=== PATIENT | male | born 1990 | race Caucasian/White ===

== ENCOUNTER 2017-01-08 09:04 | Emergency (ER) | payer OTHER ==
[2017-01-08 09:15] VITALS: BP 126/74
[2017-01-08] MEDS ORDERED: LIDOCAINE PATCH 5% TOP STA (10:47)
[2017-01-08] MEDS ORDERED: LIDOCAINE PATCH 5% TOP ONE (10:49)
--- NOTE | 2017-01-08 10:49 | ED Physician Documentation ---
History of Present Illness - Stated complaint Stated Complaint: MALE - Chief complaint Chief Complaint: General - Additonal information Additional information: hx from pt 26 AD male playing football yesterday and strained groin could not be seen at [facility] and alvaro note for PRT tomorrow no numbness weakness no back pain or abd pain Review of Systems GI: denies: Abdominal Pain : denies: Dysuria, Testicular pain Musculoskeletal: reports: Extremity pain. denies: Back pain Neurologic: denies: Focal weakness, Numbness PD PAST MEDICAL HISTORY - Past Medical History Past Medical History: No - Past Surgical History Past Surgical History: Yes HEENT: Tonsil/Adenoidectomy - Present Medications Home Medications: Ambulatory Orders Medication Instructions Recorded Confirmed Cyclobenzaprine [Flexeril] 10 mg PO TID PRN #20 tablet 01/08/17 Lidocaine Patch 5% [Lidoderm Patch] 1 each TOP DAILY PRN #10 patch 01/08/17 - Allergies Allergies/Adverse Reactions: Allergies Allergy/AdvReac Type Severity Reaction Status Date / Time penicillinase Allergy Unknown Verified 01/08/17 09:12 - Social History Does the pt smoke?: No Smoking Status: Never smoker Does the pt drink ETOH?: Yes Does the pt have substance abuse?: No - Immunizations Immunizations are current?: Yes PD ED PE NORMAL - Vitals Vital signs reviewed: Yes - Cardiac Cardiac: RRR - Respiratory Respiratory: No respiratory distress, Clear bilaterally - Abdomen Abdomen: Soft, Non tender - Extremities Extremities: Other (TTP dejon inner thighs with mm spasm on R and painful but not limited ROm) - Neuro Neuro: Alert and oriented X 3, No motor deficit, No sensory deficit Results - Vitals Vitals: Vital Signs - 24 hr 01/08/17 09:10 Temperature 36.4 C L Heart Rate 81 Respiratory 16 Rate Blood Pressure 126/74 O2 Saturation 99 Departure - Departure Disposition: 01 Home, Self Care Clinical Impression: Muscle strain, Muscle spasm Condition: Good Instructions: ED Strain Groin Follow-Up: [facility] [Provider Group] Prescriptions: Cyclobenzaprine [Flexeril] 10 mg PO TID PRN #20 tablet PRN Reason: Spasms Lidocaine Patch 5% [Lidoderm Patch] 1 each TOP DAILY PRN #10 patch PRN Reason: Pain Comments: Try the flexeril and lidocaine patches in addition to your aleve. Flexeril may cause drowsiness I wrote a note for the PRT Forms: Activity restrictions
== END 2017-01-08 13:55 | disposition home or self-care (01) ==
LOC: ED 09:04
DX: S39.011A Strain of muscle, fascia and tendon of abdomen, initial encounter (principal); X58.XXXA Exposure to other specified factors, initial encounter; Y93.61 Activity, american tackle football
CPT/HCPCS: 99283; A9270

== ENCOUNTER 2017-02-05 13:47 | Emergency (ER) | payer OTHER ==
--- NOTE | 2017-02-05 13:46 | ED Physician Documentation ---
PD HPI LOWER EXT INJURY - Stated complaint Stated Complaint: ANKLE PX - History obtained from History obtained from: Patient - History of Present Illness PD HPI LOW EXT INJURY LOCATION: Right, Ankle Type of injury: Twist Timing - onset: Today Timing - duration: Hours Timing - details: Abrupt onset, Still present Improved by: Rest Worsened by: Moving, Palpating Associated symptoms: Swelling. No: Weakness, Numbness Similar symptoms before: Has not had sx before Recently seen: Not recently seen Review of Systems Skin: denies: Abrasion (s), Laceration (s) Neurologic: denies: Focal weakness, Numbness PD PAST MEDICAL HISTORY - Past Medical History Musculoskeletal: None - Present Medications Home Medications: Ambulatory Orders Medication Instructions Recorded Confirmed Ibuprofen [Motrin] 600 mg PO TID #20 tab 02/05/17 - Allergies Allergies/Adverse Reactions: Allergies Allergy/AdvReac Type Severity Reaction Status Date / Time penicillinase Allergy Unknown Verified 01/08/17 09:12 PD ED PE NORMAL - Vitals Vital signs reviewed: Yes - General General: Alert and oriented X 3, No acute distress, Well developed/nourished - Back Back: No spinal TTP - Derm Derm: Normal color, Warm and dry, No rash - Extremities Extremities: No calf tenderness / cord, Other (right ankle with tenderness laterally and swelling. No deformity. Achilles and foot are okay. Medially not tendern. ) Results - Vitals Vitals: Vital Signs - 24 hr 02/05/17 02/05/17 13:50 15:02 Temperature 36.5 C 36.4 C L Heart Rate 109 H 92 Respiratory 18 18 Rate Blood Pressure 146/85 H 131/85 H O2 Saturation 99 100 Oxygen O2 Source Room air - Rads (name of study) ankle Radiology: Prelim report reviewed, EMP read contemporaneously (no fracture) PD MEDICAL DECISION MAKING - ED course Complexity details: reviewed results, considered differential, d/w patient Departure - Departure Disposition: 01 Home, Self Care Clinical Impression: Ankle sprain Qualifiers: Encounter type: initial encounter Involved ligament of ankle: other ligament Laterality: right Qualified Code(s): S93.491A - Sprain of other ligament of right ankle, initial encounter Condition: Stable Record reviewed to determine appropriate education?: Yes Instructions: ED Sprain Ankle W X Ray Follow-Up: [facility] [Provider Group] Prescriptions: Ibuprofen [Motrin] 600 mg PO TID #20 tab Comments: No signs of fractures on x-ray. However likely they have some torn ligaments. Use the Aircast when up and around for 3-4 weeks. Initially crutches for nonweightbearing until the pain is improved enough. Progress weightbearing as able. Ice and elevate the ankle often today and tomorrow. Limited activity based on comfort. Ibuprofen 3 times a day and add Tylenol if needed. Follow- up with your primary care in 3-5 days. Forms: Activity restrictions Discharge Date/Time: 02/05/17 15:31
[2017-02-05] MEDS ORDERED: traMADol 50 MG TABLET PO STA (13:57)
[2017-02-05] MEDS ORDERED: IBUPROFEN 600 MG TABLET PO STA (13:57)
[2017-02-05] MEDS ORDERED: traMADol 50 MG TABLET PO ONE (14:05)
[2017-02-05] MEDS ORDERED: IBUPROFEN 600 MG TABLET PO ONE (14:05)
--- NOTE | 2017-02-05 14:43 | XRAY Preliminary Report ---
Exam: XR ANKLE 3 VIEW RT IMPRESSION: Minor lateral soft tissue swelling right ankle without underlying bony pathology. [facility] SITE ID: [id number]
--- NOTE | 2017-02-05 14:45 | XRAY Report ---
EXAM: RIGHT ANKLE RADIOGRAPHY EXAM DATE: 02/05/2017 02:29 PM. CLINICAL HISTORY: Ankle inversion injury, with pain/swelling. COMPARISON: None. TECHNIQUE: 3 views. FINDINGS: Bones: Normal. No fractures or bone lesions. Joints: No effusion. No subluxations. The ankle mortise is normally aligned. Soft Tissues: Minor lateral soft tissue swelling. IMPRESSION: Minor lateral soft tissue swelling right ankle without underlying bony pathology. [facility] Referring Provider Line: [phone] SITE ID: [id number]
[2017-02-05 15:03] VITALS: BP 131/85
== END 2017-02-05 15:31 | disposition home or self-care (01) ==
LOC: EDUNIT# → ED 13:47
DX: S93.491A Sprain of other ligament of right ankle, initial encounter (principal); X50.9XXA Other and unspecified overexertion or strenuous movements or postures, initial encounter
CPT/HCPCS: 73610; 99283; 99284; A9270

== ENCOUNTER 2017-03-05 22:17 | Emergency (ER) | payer OTHER ==
[2017-03-05 22:35] LABS: BASOPHILS % (AUTO) 0.4 %; EOSINOPHILS # (AUTO) 0.1 10^3/uL (0.0-0.7); HCT - HEMATOCRIT 45.9 % (42.0-52.0); HGB - HEMOGLOBIN 15.5 g/dL (14.0-18.0); LYMPHOCYTES # (AUTO) 2.3 10^3/uL (1.5-3.5); LYMPHOCYTES % (AUTO) 28.7 %; MEAN CORPUSCULAR HEMOGLOBIN 30.8 pg (27.0-31.0); MEAN CORPUSCULAR HGB CONC 33.8 g/dL (32.0-36.0); MEAN CORPUSCULAR VOLUME 91.2 fL (80.0-94.0); MEAN PLATELET VOLUME 9.1 fL (7.4-11.4); MONOCYTES # (AUTO) 0.7 10^3/uL (0.0-1.0); MONOCYTES % (AUTO) 8.7 %; NEUTROPHILS # (AUTO) 4.9 10^3/uL (1.5-6.6); NEUTROPHILS % (AUTO) 61.2 %; NUCLEATED RED BLOOD CELLS AUTO 0.1 /100WBC; RED BLOOD COUNT 5.03 10^6/uL (4.70-6.10); RED CELL DISTRIBUTION WIDTH 12.4 % (12.0-15.0); UNCORRECTED WHITE BLOOD COUNT 8.1 x10^3/uL; WHITE BLOOD COUNT 8.1 x10^3/uL (4.8-10.8)
[2017-03-05 22:47] LABS: ALBUMIN/GLOBULIN RATIO 1.6 (1.0-2.2); BILIRUBIN,TOTAL 0.8 mg/dL (0.2-1.0); CALCIUM 9.6 mg/dL (8.5-10.3); CREATININE 0.9 mg/dL (0.6-1.2); POTASSIUM 3.9 mmol/L (3.5-5.0); TOTAL PROTEIN 8.1 g/dL (6.7-8.2)
[2017-03-05] MEDS ORDERED: PANTOPRAZOLE 40 MG TABLET PO STA (23:15)
[2017-03-05] MEDS ORDERED: PANTOPRAZOLE 40 MG TABLET ONE (23:27)
--- NOTE | 2017-03-05 23:40 | ED Physician Documentation ---
PD HPI GI BLEED - Stated complaint Stated Complaint: MALE - Chief complaint Chief Complaint: General - History obtained from History obtained from: Patient - History of Present Illness Timing - onset: Today Timing - details: Abrupt onset Associated symptoms: BRBPR Contributing factors: NSAID use Similar symptoms before: Has not had sx before Recently seen: Not recently seen - Additional information Additional information: Patient is a 26 year old male who recently sprained [place] ankle[place] 800mg at least twice a day. patient states that today when he had a bowel movement he noticed bright red blood in his stool. Patient states that he a second bowel movement and the blood persisted so the patient came in for evaluation. Review of Systems Constitutional: denies: Fever, Chills Eyes: reports: Reviewed and negative Ears: reports: Reviewed and negative Nose: denies: Epistaxis Cardiac: denies: Chest pain / pressure, Palpitations Respiratory: denies: Cough GI: reports: Bloody / black stool. denies: Abdominal Pain, Nausea, Vomiting : denies: Hematuria Skin: denies: Rash, Lesions Neurologic: denies: Near syncope, Syncope, Confused, Altered mental status, Headache Immunocompromised: denies: Immunocompromised PD PAST MEDICAL HISTORY - Past Medical History Past Medical History: No Musculoskeletal: None - Past Surgical History Past Surgical History: Yes HEENT: Tonsil/Adenoidectomy - Present Medications Home Medications: Ambulatory Orders Medication Instructions Recorded Confirmed Ibuprofen [Motrin] 800 mg PO TID 03/05/17 03/05/17 Pantoprazole Sodium [Protonix] 40 mg PO DAILY #14 tablet. 03/05/17 - Allergies Allergies/Adverse Reactions: Allergies Allergy/AdvReac Type Severity Reaction Status Date / Time penicillinase Allergy Severe Unknown Verified 03/05/17 22:22 - Social History Does the pt smoke?: No Smoking Status: Never smoker Does the pt drink ETOH?: Yes Does the pt have substance abuse?: No - Immunizations Immunizations are current?: Yes - POLST Patient has POLST: No PD ED PE NORMAL - Vitals Vital signs reviewed: Yes - General General: Alert and oriented X 3, No acute distress, Well developed/nourished - HEENT HEENT: Atraumatic, PERRL, Moist mucous membranes, Pharynx benign - Neck Neck: Supple, no meningeal sign, No JVD - Cardiac Cardiac: RRR, No murmur - Respiratory Respiratory: No respiratory distress - Abdomen Abdomen: Soft, Non tender, Non distended - Derm Derm: Normal color, Warm and dry, No rash - Extremities Extremities: No deformity, No edema, No calf tenderness / cord - Neuro Neuro: Alert and oriented X 3, No motor deficit, Normal speech Eye Opening: Spontaneous Motor: Obeys Commands Verbal: Oriented GCS Score: 15 - Psych Psych: Normal mood PD ED PE EXPANDED - Rectal Rectal: Heme Occult Pos - QC +, Normal Tone, 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 No: Hemorrhoid , Fissure Results - Vitals Vitals: Vital Signs - 24 hr 03/05/17 03/05/17 22:19 23:57 Temperature 36 C L Heart Rate 81 79 Respiratory 18 18 Rate Blood Pressure 133/89 H 141/79 H O2 Saturation 99 100 Oxygen O2 Source Room air - Labs Labs: Laboratory Tests 03/05/17 03/05/17 22:29 22:29 WBC 8.1 RBC 5.03 Hgb 15.5 Hct 45.9 MCV 91.2 MCH 30.8 MCHC 33.8 RDW 12.4 Plt Count 192 MPV 9.1 Neut # 4.9 Lymph # 2.3 Reynolds # 0.7 Eos # 0.1 Baso # 0.0 Absolute Nucleated RBC 0.00 Nucleated RBC % 0.1 Sodium 136 Potassium 3.9 Chloride 101 Carbon Dioxide 27 Anion Gap 8.0 BUN 24 H Creatinine 0.9 Estimated GFR (MDRD) 101 Glucose 108 H Calcium 9.6 Total Bilirubin 0.8 AST 28 ALT 33 Alkaline Phosphatase 57 Total Protein 8.1 Albumin 5.0 Globulin 3.1 Albumin/Globulin Ratio 1.6 Lipase 39 PD MEDICAL DECISION MAKING - ED course Complexity details: reviewed old records, reviewed results, re-evaluated patient , considered differential, d/w patient ED course: Patient was seen and examined at bedside. patient was well appearing and in no distress. Patient's labs were drawn and his hemoglobin was stable. patient was treated with protonix and made aware of the cause and prevention of his bleeding. patient required no further inpatient work up and was stable for discharge with outpatient follow up. Departure - Departure Disposition: 01 Home, Self Care Clinical Impression: GI bleed due to NSAIDs Condition: Good Instructions: ED Hematochezia Stable Follow-Up: Rachael Barnes MD [Primary Care Provider] - Prescriptions: Pantoprazole Sodium [Protonix] 40 mg PO DAILY #14 tablet. Comments: Your symptoms today are being caused by the ibuprofen use. You should stop taking ibuprofen and you should refrain from using it in the future. You can take tylenol as needed for pain. You will likely have some blood in your stools over the next few days. You should follow up with your doctor tomorrow for GI referral. You should return to the emergency department at any time for dizziness, syncope, new worse or uncontrollable symptoms. Discharge Date/Time: 03/05/17 23:57
[2017-03-05 23:57] VITALS: BP 141/79
== END 2017-03-05 23:57 | disposition home or self-care (01) ==
LOC: ED 22:17
DX: K92.2 Gastrointestinal hemorrhage, unspecified (principal); T39.395A Adverse effect of other nonsteroidal anti-inflammatory drugs [NSAID], initial encounter
CPT/HCPCS: 36415; 80053; 83690; 85025; 99283; A9270